=== PATIENT | male | born 1980 | race Caucasian/White ===

== ENCOUNTER → 2017-09-12 | Outpatient (CLI) | payer OTHER ==
--- NOTE | 2017-09-12 12:27 | Diagnostic Imaging Report ---
INDICATION: Injury to left foot. AP, oblique, and lateral views of left foot are obtained. FINDINGS: No fracture or acute bony abnormality is seen. IMPRESSION: Negative left foot. Dictated by: Dictated on workstation # [id number]
== END ==
LOC: RAD 12:09
PROVIDERS: ATTEND Nurse Practitioner Family
DX: S99.922A Unspecified injury of left foot, initial encounter (principal)
CPT/HCPCS: 73630

== ENCOUNTER 2020-04-15 10:28 | Emergency (ER) | payer BC, OTHER ==
[~2020-04-15] VITALS: Ht 193 cm; Wt 65.8 kg
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
[2020-04-15] MEDS ORDERED: LACTATED RINGERS 1,000 ML IV ONE (10:45)
[2020-04-15] MEDS ORDERED: LORazepam INJ 2 MG/ML (ATIVAN) VIAL IVP ONE (10:45)
[2020-04-15 10:51] LABS: BASOPHILS % (AUTO) 1 % (0-10); EOSINOPHILS # (AUTO) 0.2 10^3/uL (0.0-0.3); EOSINOPHILS % (AUTO) 4 % (0-10); HEMATOCRIT 43 % (40-54); HEMOGLOBIN 15.2 g/dL (13.3-17.7); LYMPHOCYTES # (AUTO) 2.1 10^3/uL (1.0-4.0); LYMPHOCYTES % (AUTO) 37 % (12-44); MEAN CORPUSCULAR HEMOGLOBIN 32 pg (25-34); MEAN CORPUSCULAR HGB CONC 36 g/dL (32-36); MEAN CORPUSCULAR VOLUME 90 fL (80-99); MEAN PLATELET VOLUME 9.5 fL (9.0-12.2); MONOCYTES # (AUTO) 0.4 10^3/uL (0.0-1.0); MONOCYTES % (AUTO) 6 % (0-12); NEUTROPHILS # (AUTO) 2.9 10^3/uL (1.8-7.8); NEUTROPHILS % (AUTO) 52 % (42-75); PLATELET COUNT 279 10^3/uL (130-400); WHITE BLOOD COUNT 5.6 10^3/uL (4.3-11.0)
[2020-04-15 11:07] LABS: ALBUMIN 4.4 GM/DL (3.2-4.5); CHLORIDE 106 MMOL/L (98-107); POTASSIUM 3.7 MMOL/L (3.6-5.0); SODIUM 141 MMOL/L (135-145)
[2020-04-15 11:09] LABS: GLUCOSE 81 MG/DL (70-105); TOTAL PROTEIN 7.2 GM/DL (6.4-8.2)
[2020-04-15 11:10] LABS: CARBON DIOXIDE 14 MMOL/L (21-32)
[2020-04-15 11:13] LABS: ALKALINE PHOSPHATASE 82 U/L (40-136); GFR ESTIMATED > 60
[2020-04-15 11:14] LABS: BUN/CREATININE RATIO 9
[2020-04-15 11:16] LABS: ALANINE AMINOTRANSFERASE 12 U/L (0-55)
[2020-04-15 12:46] VITALS: BP 121/81
[2020-04-15] MEDS ORDERED: NALO4SPR NS (18:45)
== END 2020-04-15 12:47 | disposition home or self-care (01) ==
LOC: EDUNIT# 10:28 → ER 10:30
DX: F41.0 Panic disorder [episodic paroxysmal anxiety] (principal); F41.9 Anxiety disorder, unspecified
CPT/HCPCS: 80053; 85025; 86141; 99284; G0480; 36415; 80320